=== PATIENT | female | born 1990 | race Hispanic/Latino ===

== ENCOUNTER 2018-02-02 11:25 | Emergency (ER) | payer SELFPAY ==
[2018-02-02 13:55] LABS: Urine Blood 2+ (NEG); Urine Glucose 1+ (NEG); Urine Protein NEGATIVE (NEG); Urine Specific Gravity 1.025 (1.005-1.030)
--- NOTE | 2018-02-02 14:16 | RAD REPORT ---
EXAM DESCRIPTION: RAD - Chest Pa And Lat (2 Views) - 02/02/2018 1:49 pm CLINICAL HISTORY: Cough and congestion COMPARISON: None. FINDINGS: The lungs are clear. The heart is normal in size. No displaced fractures. IMPRESSION: No acute or concerning finding suspected.
--- NOTE | 2018-02-02 14:45 | ER ---
Nurse's Notes [facility] Name: Marci Anaya Age: 27 yrs Sex: Female : 1990 Arrival Date: 02/02/2018 Time: 11:26 Bed 30 Private MD: Diagnosis: Hyperglycemia, unspecified;Cough Presentation: 02/02 12:11 Presenting complaint: Patient states: " My ears have been hurting and my chest is ph really sore from coughing." Pt reports pain in L ear, cough, congestion, and pain w/ breathing. Denies N/D, reports vomiting after coughing episodes. Transition of care: patient was not received from another setting of care. Onset of symptoms was February 02, 2018. Initial Sepsis Screen: Does the patient meet any 2 criteria? No. Patient's initial sepsis screen is negative. Does the patient have a suspected source of infection? No. Patient's initial sepsis screen is negative. Care prior to arrival: None. 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 - Social history:: Smoking status: Patient uses tobacco products, denies chronic smoking, but will smoke occasionally. Screenin:09 Abuse screen: Denies threats or abuse. Denies injuries from another. Nutritional ed1 screening: No deficits noted. Tuberculosis screening: No symptoms or risk factors identified. Fall Risk None identified. Assessment: 13:09 General: Appears in no apparent distress. Behavior is calm, cooperative. Pain: ed1 Complains of pain in right ear, left ear and chest Pain does not radiate. Pain currently is 7 out of 10 on a pain scale. Quality of pain is described as pressure, Pain began 2-3 days ago. Is continuous. Neuro: Level of Consciousness is awake, alert, obeys commands, Oriented to person, place, time, situation. Cardiovascular: Reports chest pain, Denies lightheadedness, shortness of breath, Heart tones S1 S2 present Chest pain is described as mild, quality is pressure, is located in chest wall when coughing. Respiratory: Reports cough that is non-productive, Airway is patent Respiratory effort is even, unlabored, Respiratory pattern is regular, symmetrical, Breath sounds are clear bilaterally. GI: No signs and/or symptoms were reported involving the gastrointestinal system. : No signs and/or symptoms were reported regarding the genitourinary system. EENT: Reports pain in bilateral ears. Derm: Skin is pink, warm \\T\\ dry. Musculoskeletal: Circulation, motion, and sensation intact. 13:09 Reassessment: I agree with assessment completed by SUZI Mittal . aa5 13:48 Reassessment: Patient appears in no apparent distress at this time. No changes from ed1 previously documented assessment. Patient and/or family updated on plan of care and expected duration. Pain level reassessed. Patient is alert, oriented x 3, equal unlabored respirations, skin warm/dry/pink. Patient states symptoms have not improved. 15:02 Reassessment: Patient appears in no apparent distress at this time. No changes from ed1 previously documented assessment. Patient and/or family updated on plan of care and expected duration. Pain level reassessed. Patient is alert, oriented x 3, equal unlabored respirations, skin warm/dry/pink. Vital Signs: 12:15 BP 132 / 96; Pulse 95; Resp 20; Temp 98.7; Pulse Ox 97% on R/A; Weight 109.32 kg; ph Height 5 ft. 7 in. (170.18 cm); Pain 7/10; 13:48 BP 126 / 84; Pulse 85; Resp 20; Temp 98.5(O); Pulse Ox 99% on R/A; Pain 7/10; ed1 15:02 BP 128 / 79; Pulse 76; Resp 20; Temp 98.3(O); Pulse Ox 97% on R/A; Pain 6/10; ed1 12:15 Body Mass Index 37.75 (109.32 kg, 170.18 cm) ph ED Course: 11:26 Patient arrived in ED. as 12:14 Triage completed. ph 12:16 Arm band placed on. ph 12:49 Carl Gray PA is PHCP. cp 12:49 Carl Sauer MD is Attending Physician. cp 12:58 Daxa Harding LVN is Primary Nurse. ed1 13:09 Patient has correct armband on for positive identification. Placed in gown. Bed in low ed1 position. Call light in reach. Pulse ox on. NIBP on. 13:24 Strep swab sent to lab. ed1 13:27 EKG done, by procurement technician. reviewed by Carl VARGAS. sm3 13:41 Urine collected: clean catch specimen, clear. ed1 13:44 X-ray completed. Patient tolerated procedure well. jb2 13:45 XRAY Chest Pa And Lat (2 Views) In Process Unspecified. EDMS 15:02 No provider procedures requiring assistance completed. Patient did not have IV access ed1 during this emergency room visit. Administered Medications: No medications were administered Point of Care Testing: Blood Glucose: 14:27 Blood Glucose: 176 mg/dL; ed1 Ranges: Outcome: 14:44 Discharge ordered by MD. rai 15:02 Discharged to home ambulatory. ed1 15:02 Condition: good 15:02 Discharge instructions given to patient, Instructed on discharge instructions, follow up and referral plans. medication usage, Demonstrated understanding of instructions, follow-up care, medications, Prescriptions given X 2. 15:04 Patient left the ED. ed1 Signatures: Dispatcher [employer] EDMS Craig Perez jb2 Breanne Lara Audri, RN RN aa5 Daxa Harding, FOOD PROCESSING PLANT MANAGER FOOD PROCESSING PLANT MANAGER ed1 Jaycee Terrazas, TY RN Carl Gaspar PA PA cp Montes, Shakira sm3
--- NOTE | 2018-02-02 14:45 | EDPHYS ---
Physician Documentation [facility] Name: Marci Anaya Age: 27 yrs Sex: Female : 1990 Arrival Date: 02/02/2018 Time: 11:26 Bed 30 Private MD: ED Physician Carl Sauer HPI: 02/02 13:00 This 27 yrs old Female presents to ER via Ambulatory with complaints of Chest cp Pain. 13:00 The patient or guardian reports cough, that is intermittent, with productive sputum. cp Onset: The symptoms/episode began/occurred 1 week(s) ago. Severity of symptoms: in the emergency department the symptoms are unchanged, despite home interventions. Associated signs and symptoms: Pertinent positives: chest pain, with cough, earache, sore throat. 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 - Social history:: Smoking status: Patient uses tobacco products, denies chronic smoking, but will smoke occasionally. ROS: 13:07 Eyes: Negative for injury, pain, redness, and discharge. cp 13:07 Constitutional: Negative for body aches, chills, fever, poor PO intake. 13:07 ENT: Positive for sore throat, Negative for ear pain, difficulty swallowing, difficulty cp handling secretions, hoarseness. 13:07 Neck: Negative for pain with movement, pain at rest, stiffness, tenderness. 13:07 Cardiovascular: Positive for chest pain, with cough, Negative for edema, palpitations. 13:07 Respiratory: Positive for cough, Negative for hemoptysis, shortness of breath, wheezing. 13:07 Abdomen/GI: Negative for abdominal pain, nausea, vomiting, and diarrhea, black/tarry stool, rectal bleeding. 13:07 Back: Negative for pain at rest, pain with movement, radiated pain. 13:07 : Negative for urinary symptoms. 13:07 Skin: Negative for cellulitis, rash. 13:07 Neuro: Negative for altered mental status, dizziness, headache, syncope, near syncope, weakness. 13:07 All other systems are negative. Exam: 13:13 Constitutional: The patient appears in no acute distress, alert, awake, cp non-diaphoretic, non-toxic, well developed, well nourished, obese. 13:13 Head/Face: Normocephalic, atraumatic. Eyes: Pupils equal round and reactive to light, cp extra-ocular motions intact. Lids and lashes normal. Conjunctiva and sclera are non-icteric and not injected. Cornea within normal limits. Periorbital areas with no swelling, redness, or edema. 13:13 ENT: External ear(s): are unremarkable, Ear canal(s): cerumen impaction, that is mild, bilaterally, TM's: not visable, because of cerumen, Nose: is normal, Mouth: Lips: moist, Oral mucosa: pink and intact, moist, Tongue: is normal, Posterior pharynx: is normal, airway is patent, no erythema, no exudate. 13:13 Neck: External neck: is normal, ROM/movement: is normal, is supple, without pain, no range of motions limitations, no meningismus, no nuchal rigidity, Lymph nodes: no appreciated lymphadenopathy. 13:13 Chest/axilla: Inspection: normal, Palpation: is normal, no crepitus, no tenderness. 13:13 Cardiovascular: Rate: normal, Rhythm: regular, Pulses: Pulses are 2+ in right radial artery and left radial artery. Edema: is not appreciated, JVD: is not appreciated. 13:13 Respiratory: the patient does not display signs of respiratory distress, Respirations: normal, no use of accessory muscles, no retractions, no splinting, no tachypnea, labored breathing, is not present, Breath sounds: are clear throughout, no decreased breath sounds, no stridor, no wheezing, bronchial sounds, are not appreciated. 13:13 Abdomen/GI: Exam negative for discomfort, distension, guarding, Inspection: obese 13:13 Back: pain, is absent, ROM is normal. 13:13 Skin: cellulitis, is not appreciated, no rash present. 13:13 Neuro: Orientation: to person, place \T\ time. Mentation: is normal, Cerebellar function: is grossly normal, Motor: moves all fours, strength is normal, Sensation: no obvious gross deficits. 13:15 ECG was reviewed by the Attending Physician. cp Vital Signs: 12:15 BP 132 / 96; Pulse 95; Resp 20; Temp 98.7; Pulse Ox 97% on R/A; Weight 109.32 kg; ph Height 5 ft. 7 in. (170.18 cm); Pain 7/10; 13:48 BP 126 / 84; Pulse 85; Resp 20; Temp 98.5(O); Pulse Ox 99% on R/A; Pain 7/10; ed1 15:02 BP 128 / 79; Pulse 76; Resp 20; Temp 98.3(O); Pulse Ox 97% on R/A; Pain 6/10; ed1 12:15 Body Mass Index 37.75 (109.32 kg, 170.18 cm) ph MDM: 12:53 Patient medically screened. cp 14:40 Data reviewed: vital signs, nurses notes, lab test result(s), radiologic studies, plain cp films, and as a result, I will discharge patient. 02/02 13:21 Order name: Strep; Complete Time: 14:22 02/02 13:43 Order name: Throat Culture [facility] 02/02 13:48 Order name: Urine Dipstick--Ancillary (enter results) 02/02 13:48 Order name: Urine --Ancillary (enter results) 02/02 13:48 Order name: Urine Dipstick-Ancillary; Complete Time: 14:22 [facility] 02/02 14:22 Interpretation: Normal except: UGLUC 1+; UBLD 2+. cp 02/02 13:48 Order name: Urine --Ancillary; Complete Time: 14:22 [facility] 02/02 12:54 Order name: EKG; Complete Time: 12:54 02/02 12:54 Order name: EKG - Nurse/Tech; Complete Time: 13:08 02/02 13:21 Order name: XRAY Chest Pa And Lat (2 Views); Complete Time: 14:22 02/02 13:21 Order name: Urine Dipstick-Ancillary (obtain specimen); Complete Time: 13:41 02/02 13:21 Order name: Urine Test (obtain specimen); Complete Time: 13:41 02/02 14:22 Order name: Accucheck Blood Glucose; Complete Time: 14:27 cp EC:15 Rate is 74 beats/min. Rhythm is regular. GA interval is normal. QRS interval is normal. cp QT interval is normal. No ST changes noted. Interpreted by me. Reviewed by me. Administered Medications: No medications were administered Point of Care Testing: Blood Glucose: 14:27 Blood Glucose: 176 mg/dL; ed1 Ranges: Critical Glucose Levels:Adult <50 mg/dl or >400 mg/dl <40 mg/dl or >180 mg/dl Disposition: 02/03 11:43 Co-signature as Attending Physician, Carl Sauer MD I agree with the assessment and rhona plan of care. Disposition: 02/02/18 14:44 Discharged to Home. Impression: Hyperglycemia, unspecified, Cough. - Condition is Stable. - Discharge Instructions: Hyperglycemia, Blood Glucose Monitoring, Adult, Cough, Adult. - Prescriptions for Tessalon Perles 100 mg Oral Capsule - take 1 capsule by ORAL route every 8 hours As needed; 15 capsule. Albuterol Sulfate 90 mcg/actuation - inhale 1-2 puff by INHALATION route every 4-6 hours; 1 Inhaler. - Work release form, Medication Reconciliation Form, Thank You Letter, Antibiotic Education, Prescription Opioid Use form. - Follow up: Private Physician; When: 1 - 2 days; Reason: Recheck today's complaints. - Problem is new. - Symptoms are unchanged. Signatures: Dispatcher [employer] [facility] Carl Sauer MD MD cha Riggs, Erika, INTERNET CAFE MANAGER INTERNET CAFE MANAGER ed1 Jaycee Terrazas, RN RN ph Carl Gray PA PA cp Corrections: (The following items were deleted from the chart) 02/02 14:45 14:44 02/02/2018 14:44 Discharged to Home. Impression: Hyperglycemia, unspecified. cp Condition is Stable. Forms are Medication Reconciliation Form, Thank You Letter, Antibiotic Education, Prescription Opioid Use. Follow up: Private Physician; When: 1 - 2 days; Reason: Recheck today's complaints. Problem is new. Symptoms are unchanged. cp 15:04 14:45 02/02/2018 14:44 Discharged to Home. Impression: Hyperglycemia, unspecified; ed1 Cough. Condition is Stable. Discharge Instructions: Hyperglycemia, Blood Glucose Monitoring, Adult, Cough, Adult. Prescriptions for Tessalon Perles 100 mg Oral Capsule - take 1 capsule by ORAL route every 8 hours As needed; 15 capsule, Albuterol Sulfate 90 mcg/actuation - inhale 1-2 puff by INHALATION route every 4-6 hours; 1 Inhaler. and Forms are Medication Reconciliation Form, Thank You Letter, Antibiotic Education, Prescription Opioid Use. Follow up: Private Physician; When: 1 - 2 days; Reason: Recheck today's complaints. Problem is new. Symptoms are unchanged. cp
--- NOTE | 2018-02-02 15:26 | EKG ---
Test Date: 2018-02-02 Test Time: 13:09:46 Airborne Sensor Specialist: NICK MEASUREMENT RESULTS: Intervals: Rate: 74 WI: 112 QRSD: 82 QT: 386 QTc: 428 [place]: P: 31 WI: 112 QRS: -5 T: 19 INTERPRETIVE STATEMENTS: Normal sinus rhythm with sinus arrhythmia Normal ECG No previous ECG available for comparison Electronically Signed On 02-02-18 15:25:30 CDT by Siva Garcia
== END 2018-02-02 15:04 | disposition home or self-care (01) ==
LOC: ER 11:25
DX: R73.9 Hyperglycemia, unspecified (principal)
CPT/HCPCS: 71046; 81003; 81025; 82962; 87070; 87081; 93005; 99284